=== PATIENT | female | born 1985 | race Caucasian/White ===

== ENCOUNTER 2024-11-03 13:21 | Emergency (ER) | payer OTHER ==
[~2024-11-03] VITALS: Ht 162.6 cm; Wt 69.5 kg
[2024-11-03 13:31] VITALS: TEMP 97.9
[2024-11-03 14:21] LABS: PLATELET COUNT (AUTO) 500 K/uL (150-450); RED BLOOD CELL COUNT(AUTO) 3.84 MIL/uL (4.00-5.20); RED CELL DISTRIBUTION WIDTH 17.9 % (11.5-14.5); WHITE BLOOD COUNT (AUTO) 4.4 K/uL (4.5-11.0)
[2024-11-03 14:24] LABS: CALCIUM, TOTAL 8.3 mg/dL (8.8-10.5); CREATININE 0.70 mg/dL (0.60-1.30); GLOMERULAR FILTR. RATE CALC > 60 mL/min (>60); GLUCOSE,RANDOM 85 mg/dL (70-110); SODIUM SERUM 139 mmol/L (136-145); UREA NITROGEN, BLOOD 5 mg/dL (7-18)
[2024-11-03] MEDS: IBUPROFEN 400 MG TABLET PO ONE (14:29)
[2024-11-03 14:49] LABS: TROPONIN I-HIGH SENSITIVITY 4 ng/L (<51)
[2024-11-03 15:19] VITALS: BP 112/60; PULSE 60; RESP 16; O2SAT 100
== END 2024-11-03 18:59 | disposition home or self-care (01) ==
LOC: EMS 13:30
DX: D64.9 Anemia, unspecified (principal); F17.210 Nicotine dependence, cigarettes, uncomplicated; R42 Dizziness and giddiness; R51.9 Headache, unspecified; N89.8 Other specified noninflammatory disorders of vagina; Z98.84 Bariatric surgery status
CPT/HCPCS: 76856; 80048; 84484; 84702; 84703; 85025; 93005; 99284